=== PATIENT | male | born 1960 | race Caucasian/White ===

== ENCOUNTER 2017-06-15 08:00 | Day surgery (SDC) | payer OTHER ==
[2017-06-15] MEDS ORDERED: CLINDAMYCIN 600 MG/DEXTROSE 50 ML IV ONE (08:10)
[2017-06-15] MEDS ORDERED: LIDOCAINE 1% 2 ML INJ ID PRN (08:11)
[2017-06-15] MEDS ORDERED: LR 1,000 ML IV ONE (08:11)
[2017-06-15] MEDS ORDERED: BUPIVACAINE 0.25% 30 ML SDV ONE (08:28)
[2017-06-15] MEDS ORDERED: BACITRACIN 50,000 UNITS/10 ML SYR IRR ONE (08:28)
[2017-06-15 08:29] VITALS: PULSE 67
--- NOTE | 2017-06-15 09:06 | PDHPUP ---
History & Physical Update H&P update statement: This history and physical update is based on an assessment of the patient which was completed after admission or registration (within 24 hours), but prior to the surgery/procedure.
[2017-06-15] MEDS ORDERED: MIDAZOLAM 2 MG/2 ML VIAL IVP ONE (09:34)
[2017-06-15] MEDS ORDERED: MIDAZOLAM 2 MG/2 ML VIAL ONE (09:35)
--- NOTE | 2017-06-15 09:36 | PDANEPAE ---
ANE History of Present Illness left hammer toe ANE Past Medical History - Cardiovascular History Hx Hypertension: Yes Hx Arrhythmias: No Hx Chest Pain: No Hx Coronary Artery / Peripheral Vascular Disease: Yes Hx CHF / Valvular Disease: No Hx Palpitations: No - Pulmonary History Hx COPD: No Hx Asthma/Reactive Airway Disease: No Hx Recent Upper Respiratory Infection: No Hx Oxygen in Use at Home: No Hx Sleep Apnea: No Sleep Apnea Screening Result - Last Documented: Negative - Neurologic History Hx Cerebrovascular Accident: No Hx Seizures: No Hx Dementia: No - Endocrine History Hx Diabetes: No - Renal History Hx Renal Disorders: No - Liver History Hx Hepatic Disorders: No - Neurological & Psychiatric Hx Hx Neurological and Psychiatric Disorders: Yes Neurological / Psychiatric History Comment: INTERMITTENT - Cancer History Hx Cancer: No - Congenital Disorder History Hx Congenital Disorders: No - GI History Hx Gastrointestinal Disorders: No - Other Health History Other Health History: NONE - Chronic Pain History Chronic Pain: No - Surgical History 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 ANE Review of Systems Review of Systems: - Exercise capacity METS (RN): 4 METS ANE Patient History - Allergies Allergies/Adverse Reactions: Penicillins Allergy (Verified 08/28/15 10:48) Fever tetracycline [Tetracycline] Allergy (Verified 08/28/15 10:48) TERAMYCIN Allergy (Uncoded 08/28/15 10:48) - Home Medications Home Medications: Lisinopril 08/28/15 [Last Taken 06/14/17] Verapamil 08/28/15 [Last Taken 06/14/17] buPROPion 08/28/15 [Last Taken 06/14/17] - NPO status NPO Since - Liquids (Date): 06/15/17 NPO Since - Liquids (Time): 20:30 NPO Since - Solids (Date): 06/15/17 NPO Since - Solids (Time): 20:30 - Smoking Hx Smoking Status: Never smoked - Family Anes Hx Family Hx Anesthesia Complications: NONE ANE Labs/Vital Signs - Vital Signs Blood Pressure: 123/82 Heart Rate: 67 Respiratory Rate: 18 O2 Sat (%): 92 Height: 172.72 cm Weight: 83.915 kg ANE Physical Exam - Airway Neck exam: FROM Mallampati Score: Class 2 Mouth exam: normal dental/mouth exam - Pulmonary Pulmonary: no respiratory distress - Cardiovascular Cardiovascular: regular rate and rhythym - ASA Status ASA Status: III ANE Anesthesia Plan Anesthesia Plan: MAC
[2017-06-15] MEDS ORDERED: fentaNYL 100 MCG/2 ML INJ ONE (09:39)
[2017-06-15] MEDS ORDERED: PROPOFOL/EMULSION 500 MG/50 ML BOTTLE IV ONE (09:39)
[2017-06-15] MEDS ORDERED: NALOXONE HCL 0.4 MG/ML INJ IVP PRN (09:53)
[2017-06-15] MEDS ORDERED: fentaNYL 100 MCG/2 ML INJ IVP PRN (09:53)
[2017-06-15] MEDS ORDERED: PROMETHAZINE HCL 25 MG/ML INJ IVP PRN (09:53)
[2017-06-15] MEDS ORDERED: ONDANSETRON 4 MG/2 ML VIAL IVP PRN (09:53)
[2017-06-15] MEDS ORDERED: HYDROmorphONE/DILAUDID 1 MG/ML INJ IVP PRN (09:53)
--- NOTE | 2017-06-15 10:49 | POSTOPPROG ---
Post Op Note Date of Operation: 06/15/17 Surgeon: Dayton Angeles Ssrs Developer: none Anesthesiologist: kesha Anesthesia: Local (Specify) (with MAC) Pre-op Diagnosis: hammertoe left 2nd with ulceration Post-op Diagnosis: same Indication: painful hammertoe with ulceration left 2nd Procedure: hammertoe correction left 2nd with debridement and ulcer closure Findings: none Inf/Abcess present in the surg proc area at time of surgery?: No Depth: Deep Incisional (Fascial) EBL: Minimal Total fluids administered: 20cc 9/1 .25% marcaine plain and with epi Complications: none Drains: Other (none)
--- NOTE | 2017-06-15 10:55 | POSTANESTH ---
Post Anesthetic Evaluation Cardiovascular Status: Normal, Stable Respiratory Status: Normal, Stable Level of Consciousness/Mental Status: Can Participate in Eval Pain Control: Adequate, Prn Tx Ordered Nausea/Vomiting Control: Adequate, Prn Tx Ordered Complications Possibly Related to Anesthesia: None Noted
[2017-06-15 11:40] VITALS: RESP 17
[2017-06-15 12:31] VITALS: BP 111/66; TEMP 97.7; O2SAT 94
--- NOTE | 2017-06-16 03:39 | GOP ---
[f rep st] OPERATIVE REPORT DATE OF OPERATION: 06/15/2017 SURGEON: Dayton Angeles DPM PRODUCE TEAM MEMBER: None. ANESTHESIA: Local with MAC by Dr. Duron. PREOPERATIVE DIAGNOSIS: 1. Hammertoe, left 2nd digit. 2. Ulceration, left 2nd digit. POSTOPERATIVE DIAGNOSIS: 1. Hammertoe, left 2nd digit. 2. Ulceration, left 2nd digit. 3. Contraction, left 2nd metatarsophalangeal joint. PROCEDURE PERFORMED: 1. Correction of hammertoe, left 2nd digit, by proximal interphalangeal joint fusion. 2. Capsulotomy, left 2nd metatarsophalangeal joint. 3. Debridement with primary closure of ulceration, left 2nd digit. FINDINGS: ESTIMATED BLOOD LOSS: Minimal. DESCRIPTION OF PROCEDURE: The patient presented to [facility], was cleared for intended procedure. Patient was taken to the operating room, placed on the table in supine position. IV station was started per the Anesthesia Department. Foot was anesthetized and infiltrated with nerve block fashion. Foot was prepped, scrubbed, and draped in the usual sterile fashion following exsanguination by elevation and Esmarch bandage. Pneumatic ankle tourniquet was elevated to 225 mmHg. At this time, attention was directed to the dorsal aspect of the left 2nd digit at the level of the proximal interphalangeal joint. The linear incision was made over the joint. This incision was carried deep, utilizing sharp and blunt dissection, making sure that all neurovascular structures were identified and retracted at this time. All superficial bleeders were cauterized. The incision was carried down deep to the level of the extensor apparatus at the level of the proximal interphalangeal joint. At this time, the extensor apparatus was sharply transected, and medial and lateral collateral ligaments were released. The extensor apparatus was dissected free proximally to allow for adequate exposure to the head of the proximal phalanx and base of the intermediate phalanx. Upon completion of this, a sagittal saw was utilized to remove the head of the proximal phalanx. The appropriate K-wire was then utilized and drilled into the proximal phalanx centered in the remaining shaft of the proximal phalanx. The area was drilled appropriately and countersunk. The cartilage on the base of the intermediate phalanx was removed with a high-speed bur. The area was flushed with copious amounts of sterile saline. At this point, the hammertoe implant was screwed into the remaining proximal phalanx. Another guidepin was then driven through the intermediate and distal phalanx, and out the distal tip of the toe. The guidepin made connection with the head of the screw in the proximal phalanx, and then counterclockwise rotation allowed the screw to pull into the intermediate phalanx, allowing for good compression at the fusion site. The guidewire was then removed and visualization by C-arm fluoroscopy was obtained. Excellent positioning to the screw was obtained with good compression at the fusion site. At this point, the extensor apparatus was reapproximated with 3-0 Vicryl. It was decided that the 2nd toe was still sitting in a slightly dorsiflexed position due to contraction at the metatarsophalangeal joint. At this point, a 64 [place] blade was introduced from the dorsal aspect at the level of the metatarsophalangeal joint, and a dorsal capsulotomy was performed. This allowed for reduction of the contraction in the 2nd digit. The area was again flushed with copious amounts of sterile saline before the incision was closed with 5-0 nylon. At this point, attention was directed to the ulceration at the distal tip of the toe. It was decided that full-thickness debridement of the area would be performed. Upon removal of all devitalized tissue, good healthy tissue was appreciable with no evidence of infection. It was decided the ulceration would be closed primarily with 5-0 nylon. The entire area was then dressed with Betadine-soaked Adaptics, 4 x 4's, Shoshana and Evelio, before the pneumatic ankle tourniquet was released for a total tourniquet time of 34 minutes. SURGEON: Dayton Angeles DPM PATHOLOGY: None. HEMOSTASIS: PAT at 225 mmHg x34 minutes. MATERIALS: [employer] hammertoe screw, 3.0 x 16 mm. INJECTABLES: 20 cc of 9:1 ratio of 0.25% Marcaine plain, 0.25% Marcaine with epinephrine preoperatively. COMPLICATIONS: None. /[id number]/MODL MTDD
== END 2017-06-15 12:20 | disposition home or self-care (01) ==
LOC: FSGY 08:00
PROVIDERS: ATTEND Podiatrist Primary Podiatric Medicine
DX: M20.42 Other hammer toe(s) (acquired), left foot (principal); L97.522 Non-pressure chronic ulcer of other part of left foot with fat layer exposed; G62.9 Polyneuropathy, unspecified; E78.5 Hyperlipidemia, unspecified; I10 Essential (primary) hypertension; Z87.891 Personal history of nicotine dependence; Z95.5 Presence of coronary angioplasty implant and graft
CPT/HCPCS: C1713; J0171; J2250; J2704; J3010

== ENCOUNTER → 2019-01-15 | Outpatient (CLI) | payer OTHER | LOC: FIMAGING 11:30 ==